=== PATIENT | male | born 1985 | race Hispanic/Latino ===

== ENCOUNTER 2019-12-17 11:00 | Emergency (ER) | payer SELFPAY | END 2019-12-17 12:50 | disposition left against medical advice (07) | LOC: ED 11:00 | DX: M25.549 Pain in joints of unspecified hand (principal); Z53.21 Procedure and treatment not carried out due to patient leaving prior to being seen by health care provider ==

== ENCOUNTER 2019-12-17 21:37 | Emergency (ER) | payer SELFPAY ==
[2019-12-17] MEDS ORDERED: SODIUM CHLORIDE 0.9% 1000 ML 1,000 ML IV ONE (21:53)
[2019-12-17] MEDS ORDERED: levETIRAcetam 1000 MG/NS 0.75% 1,000 MG/100 ML BAG IV ONE (21:53)
--- NOTE | 2019-12-17 21:56 | Emergency Department Report ---
ED Seizure HPI - General Stated Complaint: SEIZURES Time Seen by Provider: 12/17/19 21:52 Source: patient, EMS Mode of arrival: Stretcher Limitations: Physical Limitation - History of Present Illness Initial Comments: Patient is a 34-year-old male that presents to the emergency room for seizure and EtOH. Patient brought in by EMS. Patient states he has a history of seizure. Patient states he is not compliant with his medications. Patient states he was seen yesterday at another hospital and given a prescription for Keppra but never filled it. Patient states he was drinking today. Patient states he had 3 beers. Patient states his only complaint is a headache. Patien t states his headache is mild. Patient states his headache is better with rest and worse with movement. Patient states he is not sure if his seizure was witnessed. Patient does not know if he hit his head. Patient states he was at a gas station sitting outside. Report received from EMS. EMS states that the seizure was witnessed by another customer at the gas station. EMS states that the patient was sitting in his believe did not hit his head per the witnesses. Patient denies recent travel. Patient denies recent international travel. Patient denies exposure to the novel coronavirus. Patient denies sick contacts. Patient denies fever and chills. Patient denies cough. Patient denies diarrhea. Patient denies coming in contact with anybody with symptoms of the novel coronavirus. Complaint: seizure -: Sudden Description of Episode: loss of consciousness Witnessed:: No Trauma: No Seizure History: known seizure disorder, history of non-compliance Place: home - Related Data Allergies Allergy/AdvReac Type Severity Reaction Status Date / Time No Known Allergies Allergy Verified 12/17/19 23:34 ED Review of Systems ROS: Stated complaint: SEIZURES Other details as noted in HPI Constitutional: denies: chills, fever Eyes: denies: eye pain, eye discharge, vision change ENT: denies: ear pain, throat pain Respiratory: denies: cough, shortness of breath, wheezing Cardiovascular: denies: chest pain, palpitations Endocrine: no symptoms reported Gastrointestinal: denies: abdominal pain, nausea, diarrhea Genitourinary: denies: urgency, dysuria Musculoskeletal: denies: back pain, joint swelling, arthralgia Skin: denies: rash, lesions Neurological: as per HPI, headache. denies: weakness, paresthesias Psychiatric: denies: anxiety, depression Hematological/Lymphatic: denies: easy bleeding, easy bruising ED Past Medical Hx - Past Medical History Previous Medical History?: Yes Hx Seizures: Yes - Surgical History Past Surgical History?: No - Family History Family history: no significant - Social History Smoking Status: Current Every Day Smoker Substance Use Type: Alcohol ED Physical Exam - General Limitations: No Limitations General appearance: alert, in no apparent distress - Head Head exam: Present: atraumatic, normocephalic - Eye Eye exam: Present: normal appearance, PERRL Pupils: Present: normal accommodation - ENT ENT exam: Present: mucous membranes dry - Neck Neck exam: Present: normal inspection - Respiratory Respiratory exam: Present: normal lung sounds bilaterally. Absent: respiratory distress - Cardiovascular Cardiovascular Exam: Present: regular rate, normal rhythm. Absent: systolic murmur, diastolic murmur, rubs, gallop - GI/Abdominal GI/Abdominal exam: Present: soft, normal bowel sounds. Absent: distended, tenderness, guarding - Rectal Rectal exam: Present: deferred - Extremities Exam Extremities exam: Present: normal inspection - Back Exam Back exam: Present: normal inspection - Neurological Exam Neurological exam: Present: alert, oriented X3 - Psychiatric Psychiatric exam: Present: normal affect, normal mood - Skin Skin exam: Present: warm, dry, intact, normal color. Absent: rash ED Course Vital Signs 12/17/19 12/18/19 22:20 06:20 Temperature 98.5 F Pulse Rate 120 H 84 Respiratory 16 16 Rate Blood Pressure 140/92 96/51 [Left] O2 Sat by Pulse 98 96 Oximetry - Reevaluation(s) Reevaluation #1: Patient initially refused blood work. Patient has agreed to have blood work and IV started. Patient resting in room. 12/17/19 23:35 Reevaluation #2: Patient however repeat alcohol. No seizure activity noted. Patient is answering questions better. 12/18/19 02:01 Reevaluation #3: Patient signed out to oncoming physician, Dr. Merida. Patient will remain in the ER until the patient is clinically sober. 12/18/19 06:30 ED Medical Decision Making - Lab Data Result diagrams: 12/17/19 23:29 12/17/19 23:29 - Radiology Data Radiology results: report reviewed CT HEAD WITHOUT CONTRAST INDICATION / CLINICAL INFORMATION: Seizure. TECHNIQUE: All CT scans at this location are performed using CT dose reduction for ALARA by means of automated exposure control. COMPARISON: None available. FINDINGS: HEMORRHAGE: None. EXTRA-AXIAL SPACES: Normal in size and morphology for the patient's age. VENTRICULAR SYSTEM: Normal in size and morphology for the patient's age. CEREBRAL PARENCHYMA: No significant abnormality. No acute territorial infarct. MIDLINE SHIFT OR HERNIATION: None. CEREBELLUM / BRAINSTEM: No significant abnormality. ORBITS: Normal as visualized. SOFT TISSUES of HEAD: No significant abnormality. CALVARIUM: No significant abnormality. PARANASAL SINUSES / MASTOID AIR CELLS: Normal as visualized. ADDITIONAL FINDINGS: None. IMPRESSION: 1. No acute intracranial abnormality. - Medical Decision Making Patient is a 34-year-old male who presents emergency with seizure and alcohol intoxication. Patient had labs which were essentially unremarkable. Patient found to have an elevated blood alcohol. Patient monitored for multiple hours. Patient remained in the ER until he was legally sober and and the patient was discharged home. - Differential Diagnosis Seizure, alcohol abuse, head injury. Critical care attestation.: If time is entered above; I have spent that time in minutes in the direct care of this critically ill patient, excluding procedure time. ED Disposition Clinical Impression: Seizure Acute alcohol intoxication Qualifiers: Complication of substance-induced condition: with unspecified complication Qualified Code(s): F10.929 - Alcohol use, unspecified with intoxication, unspecified Disposition: DC-01 TO HOME OR SELFCARE Is pt being admited?: No Does the pt Need Aspirin: No Condition: Stable Instructions: Abuse of Alcohol (ED), At-Risk Alcohol Use (ED), Epilepsy (ED) Additional Instructions: Patient to follow-up with primary care in 2 to 3 days. Patient to follow-up with neurologist in 2 to 3 days. Patient to decrease alcohol intake. Patient to rest. Patient to increase water. Patient to avoid strenuous exercise or heavy lifting until cleared by neurologist. Patient to avoid driving. Patient to take Tylenol or ibuprofen as needed for pain. Patient to start Keppra. Patient to take meds as directed. Patient to return to the ER if condition worsens, changes or new symptoms arise. Referrals: PRIMARY CARE,MD [Primary Care Provider] - 2-3 Days MUNIR CRUZ MD [Staff Physician] - 2-3 Days
--- NOTE | 2019-12-17 22:45 | Cat Scan Report ---
CT HEAD WITHOUT CONTRAST INDICATION / CLINICAL INFORMATION: Seizure. TECHNIQUE: All CT scans at this location are performed using CT dose reduction for ALARA by means of automated e xposure control. COMPARISON: None available. FINDINGS: HEMORRHAGE: None. EXTRA-AXIAL SPACES: Normal in size and morphology for the patient's age. VENTRICULAR SYSTEM: Normal in size and morphology for the patient's age. CEREBRAL PARENCHYMA: No significant abnormality. No acute territorial infarct. MIDLINE SHIFT OR HERNIATION: None. CEREBELLUM / BRAINSTEM: No significant abnormality. ORBITS: Normal as visualized. SOFT TISSUES of HEAD: No significant abnormality. CALVARIUM: No significant abnormality. PARANASAL SINUSES / MASTOID AIR CELLS: Normal as visualized. ADDITIONAL FINDINGS: None. IMPRESSION: 1. No acute intracranial abnormality. Signer Name: Irvin William MD Signed: 12/17/2019 10:40 PM Workstation Name: [id number]
[2019-12-17 23:54] LABS: Basophils % (Auto) 0.5 % (0.0-1.8); Eosinophils % (Auto) 0.4 % (0.0-4.3); Hematocrit 35.4 % (35.5-45.6); Hemoglobin 11.9 gm/dl (11.8-15.2); Lymphocytes % (Auto) 13.2 % (13.4-35.0); Mean Corpuscular HGB Conc 34 % (32-34); Mean Corpuscular Volume 99 fl (84-94); Monocytes # (Auto) 0.7 K/mm3 (0.0-0.8); Monocytes % (Auto) 8.8 % (0.0-7.3); Platelet Count 232 K/mm3 (140-440); Red Blood Count 3.59 M/mm3 (3.65-5.03); Red Cell Distribution Width 17.3 % (13.2-15.2)
[2019-12-17 23:58] LABS: Bilirubin,Urine NEG (Negative); Blood,Urine NEG (Negative); Color,Urine Straw (Yellow); Protein,Urine <15 mg/dL mg/dL (Negative); Urobilinogen,Urine < 2.0 mg/dL (<2.0); WBC,Urine < 1.0 /HPF (0.0-6.0)
[2019-12-18 00:05] LABS: Amphetamine Screen,Urine PRESUMPTIVE NEGATIVE; Benzodiazepines Screen,Urine PRESUMPTIVE POSITIVE; Cannabinoid Screen,Urine PRESUMPTIVE NEGATIVE; Cocaine Screen,Urine PRESUMPTIVE NEGATIVE; Methadone Screen,Urine PRESUMPTIVE NEGATIVE; Opiate Screen,Urine PRESUMPTIVE NEGATIVE
[2019-12-18 00:08] LABS: Alanine Aminotransferase 27 units/L (7-56); Albumin 3.7 g/dL (3.9-5); Blood Urea Nitrogen 4 mg/dL (9-20); Calcium 8.2 mg/dL (8.4-10.2); Hemolysis Index 6
[2019-12-18 00:09] LABS: BUN/Creatinine Ratio 8
[2019-12-18] MEDS ORDERED: THIAMINE 100 MG, FOLIC ACID 1 MG, MULTIPLE VITAMIN INJ, ADULT 10 ML in SODIUM CHLORIDE ... IV ONE (00:17)
[2019-12-18 13:52] VITALS: BP 122/79
== END 2019-12-18 13:51 | disposition home or self-care (01) ==
LOC: ED 21:37
DX: G40.909 Epilepsy, unspecified, not intractable, without status epilepticus (principal); F10.929 Alcohol use, unspecified with intoxication, unspecified; F17.200 Nicotine dependence, unspecified, uncomplicated
CPT/HCPCS: 36415; 70450; 80053; 80307; 81001; 85025; 96365; 96366; 96375; 99285; J1953; J3411; J7030; 80320; G0480

== ENCOUNTER 2019-12-18 20:46 | Emergency (ER) | payer SELFPAY ==
[2019-12-18 21:35] VITALS: BP 122/82
== END 2019-12-19 00:12 | disposition left against medical advice (07) ==
LOC: ED 20:46
DX: G40.909 Epilepsy, unspecified, not intractable, without status epilepticus (principal); Z53.21 Procedure and treatment not carried out due to patient leaving prior to being seen by health care provider

== ENCOUNTER 2019-12-19 01:47 | Emergency (ER) | payer SELFPAY ==
[2019-12-19 07:07] LABS: Basophils % (Auto) 0.7 % (0.0-1.8); Eosinophils % (Auto) 0.6 % (0.0-4.3); Hematocrit 39.2 % (35.5-45.6); Hemoglobin 13.4 gm/dl (11.8-15.2); Lymphocytes # (Auto) 1.5 K/mm3 (1.2-5.4); Lymphocytes % (Auto) 21.6 % (13.4-35.0); Mean Corpuscular HGB Conc 34 % (32-34); Mean Corpuscular Volume 98 fl (84-94); Monocytes # (Auto) 0.4 K/mm3 (0.0-0.8); Monocytes % (Auto) 6.3 % (0.0-7.3); Platelet Count 186 K/mm3 (140-440); Red Blood Count 3.99 M/mm3 (3.65-5.03); Red Cell Distribution Width 16.7 % (13.2-15.2)
[2019-12-19] MEDS ORDERED: LORazepam 2 MG/ML VIAL IV PRN ×2 (07:29)
[2019-12-19 07:30] LABS: Alanine Aminotransferase 23 units/L (7-56); Albumin 3.6 g/dL (3.9-5); Blood Urea Nitrogen 5 mg/dL (9-20); Calcium 8.5 mg/dL (8.4-10.2); Hemolysis Index 46
[2019-12-19] MEDS ORDERED: levETIRAcetam 1000 MG/NS 0.75% 1,000 MG/100 ML BAG IV ONE (07:30)
[2019-12-19 07:31] LABS: BUN/Creatinine Ratio 10
--- NOTE | 2019-12-19 07:44 | Emergency Department Report ---
HPI - General Chief Complaint: Seizure Time Seen by Provider: 12/19/19 07:23 - HPI HPI: This is a 34-year-old male who presents to the emergency department with complaint of a seizure prior to arrival. This is the third day in a row that the patient has come here and he was here yesterday with a complaint of seizure and alcohol intoxication. The patient does admit to drinking alcohol daily and thinks that he may be going into withdrawal. However the patient does have a history of epilepsy for which she is supposed to be on Keppra but has been noncompliant secondary to financial issues. The patient says that he is homeless. Currently the patient is awake, alert, and just complains of feeling jittery. Apparently the patient was at another hospital a few days ago for seizure-like activity and was discharged with a prescription for Keppra, but the patient did not fill it as he did not have the money to do so. He denies any headache, fever, vision change, slurred speech, vomiting, chest pain, shortness of breath.. ED Past Medical Hx - Past Medical History Previous Medical History?: Yes Hx Seizures: Yes - Surgical History Past Surgical History?: No - Social History Smoking Status: Current Every Day Smoker Substance Use Type: Alcohol - Medications Home Medications: Home Medications Medication Instructions Recorded Confirmed Last Taken Type chlordiazePOXIDE [Librium] 25 mg PO Q8H PRN #8 capsule 12/19/19 Unknown Rx ED Review of Systems ROS: Stated complaint: SEIZURE Other details as noted in HPI Comment: All other systems reviewed and negative Constitutional: denies: chills, fever Eyes: denies: eye pain, vision change ENT: denies: ear pain, throat pain Respiratory: denies: cough, shortness of breath Cardiovascular: denies: chest pain, palpitations Gastrointestinal: nausea. denies: abdominal pain, vomiting Genitourinary: denies: dysuria, discharge Musculoskeletal: denies: back pain, arthralgia Skin: denies: rash, lesions Neurological: other (Seizure). denies: numbness, paresthesias Physical Exam - Physical Exam Vital Signs: Vital Signs 12/19/19 03:00 Temperature 98.1 F Pulse Rate 112 H Respiratory 18 Rate Blood Pressure 122/82 [Left] O2 Sat by Pulse 99 Oximetry Physical Exam: GENERAL: The patient is well-developed well-nourished. HENT: Normocephalic. Atraumatic. Patient has moist mucous membranes. EYES: Extraocular motions are intact. No nystagmus. NECK: Supple. Trachea is midline. CHEST/LUNGS: Clear to auscultation. There is no respiratory distress noted. HEART/CARDIOVASCULAR: Regular. There is mild tachycardia. ABDOMEN: Abdomen is soft, nontender. Patient has normal bowel sounds. There is no abdominal distention. SKIN: Skin is warm and dry. NEURO: The patient is awake, alert, and oriented. The patient is cooperative. The patient has no focal neurologic deficits. Normal speech. Cranial nerves II through XII grossly intact. No facial asymmetry. MUSCULOSKELETAL: There is no tenderness or deformity. There is no limitation range of motion. ED Course Vital Signs 12/19/19 03:00 Temperature 98.1 F Pulse Rate 112 H Respiratory 18 Rate Blood Pressure 122/82 [Left] O2 Sat by Pulse 99 Oximetry - Reevaluation(s) Reevaluation #1: 12/20/19 06:35 Lab Results 12/19/19 12/19/19 12/19/19 Range/Units 06:49 06:49 07:50 WBC 6.7 (4.5-11.0) K/mm3 RBC 3.99 (3.65-5.03) M/mm3 Hgb 13.4 (11.8-15.2) gm/dl Hct 39.2 (35.5-45.6) % MCV 98 H (84-94) fl MCH 34 H (28-32) pg MCHC 34 (32-34) % RDW 16.7 H (13.2-15.2) % Plt Count 186 (140-440) K/mm3 Lymph % (Auto) 21.6 (13.4-35.0) % [place] % (Auto) 6.3 (0.0-7.3) % Eos % (Auto) 0.6 (0.0-4.3) % Baso % (Auto) 0.7 (0.0-1.8) % Lymph # (Auto) 1.5 (1.2-5.4) K/mm3 [place] # (Auto) 0.4 (0.0-0.8) K/mm3 Eos # (Auto) 0.0 (0.0-0.4) K/mm3 Baso # (Auto) 0.0 (0.0-0.1) K/mm3 Seg Neutrophils % 70.8 H (40.0-70.0) % Seg Neutrophils # 4.8 (1.8-7.7) K/mm3 Sodium 141 (137-145) mmol/L Potassium 3.8 (3.6-5.0) mmol/L Chloride 101.5 (98-107) mmol/L Carbon Dioxide 25 (22-30) mmol/L Anion Gap 18 mmol/L BUN 5 L (9-20) mg/dL Creatinine 0.5 L (0.8-1.3) mg/dL Estimated GFR > 60 ml/min BUN/Creatinine Ratio 10 % Glucose 83 (75-100) mg/dL Calcium 8.5 (8.4-10.2) mg/dL Magnesium (1.7-2.3) mg/dL Total Bilirubin 0.40 (0.1-1.2) mg/dL AST 48 H (5-40) units/L ALT 23 (7-56) units/L Alkaline Phosphatase 234 H (35-129) units/L Total Creatine Kinase (55-170) units/L Total Protein 7.3 (6.3-8.2) g/dL Albumin 3.6 L (3.9-5) g/dL Albumin/Globulin Ratio 1.0 % Plasma/Serum Alcohol 0.23 H (0-0.07) % 10/30/20 Range/Units 07:50 WBC (4.5-11.0) K/mm3 RBC (3.65-5.03) M/mm3 Hgb (11.8-15.2) gm/dl Hct (35.5-45.6) % MCV (84-94) fl MCH (28-32) pg MCHC (32-34) % RDW (13.2-15.2) % Plt Count (140-440) K/mm3 Lymph % (Auto) (13.4-35.0) % [place] % (Auto) (0.0-7.3) % Eos % (Auto) (0.0-4.3) % Baso % (Auto) (0.0-1.8) % Lymph # (Auto) (1.2-5.4) K/mm3 [place] # (Auto) (0.0-0.8) K/mm3 Eos # (Auto) (0.0-0.4) K/mm3 Baso # (Auto) (0.0-0.1) K/mm3 Seg Neutrophils % (40.0-70.0) % Seg Neutrophils # (1.8-7.7) K/mm3 Sodium (137-145) mmol/L Potassium (3.6-5.0) mmol/L Chloride (98-107) mmol/L Carbon Dioxide (22-30) mmol/L Anion Gap mmol/L BUN (9-20) mg/dL Creatinine (0.8-1.3) mg/dL Estimated GFR ml/min BUN/Creatinine Ratio % Glucose (75-100) mg/dL Calcium (8.4-10.2) mg/dL Magnesium 1.70 (1.7-2.3) mg/dL Total Bilirubin (0.1-1.2) mg/dL AST (5-40) units/L ALT (7-56) units/L Alkaline Phosphatase (35-129) units/L Total Creatine Kinase 222 H (55-170) units/L Total Protein (6.3-8.2) g/dL Albumin (3.9-5) g/dL Albumin/Globulin Ratio % Plasma/Serum Alcohol (0-0.07) % ED Medical Decision Making - Lab Data Result diagrams: 12/19/19 06:49 12/19/19 06:49 - Medical Decision Making This patient presents to the emergency department with a complaint of a seizure prior to arrival. The patient says that he is having alcohol withdrawal symptoms but his initial alcohol level is 0.23. He was low on the CIWA protocol and did receive 1 dose of Ativan. The rest of his labs were mostly unremarkable except for a slight elevation in the AST, secondary to the alcohol use. Patient was reevaluated multiple times over multiple hours until his blood alcohol level was close to the legal limit of 0.08. He has been awake, alert, oriented. There are no focal, motor or sensory deficits and his cranial nerves are intact. The patient does not have any signs of acute psychosis, hallucinations, delirium tremens, and there has been no further seizure-like activity. On top of the alcohol use, and potential withdrawal, the patient has a history of epilepsy and he has been noncompliant with his Keppra. He has a previous prescription for the Keppra but has not gotten it filled secondary to financial issues, as the patient is homeless. He was loaded with a gram of Keppra here. The patient expresses the desire to stop drinking and seek detox/rehabilitation. He has been given a small prescription for Librium to assist with cessation of alcohol and any potential alcohol withdrawal. However he will go to the closest emergency department with any further seizure-like activity, worsening of symptoms, or with any acute distress. Critical Care Time: No Critical care attestation.: If time is entered above; I have spent that time in minutes in the direct care of this critically ill patient, excluding procedure time. ED Disposition Clinical Impression: Seizure, Noncompliance with medication regimen Acute alcohol intoxication Qualifiers: Complication of substance-induced condition: uncomplicated Qualified Code(s): F10.920 - Alcohol use, unspecified with intoxication, uncomplicated Disposition: DC-01 TO HOME OR SELFCARE Is pt being admited?: No Condition: Stable Instructions: Alcohol Intoxication (ED), Abuse of Alcohol (ED), Recurrent Seizures Adult (ED) Additional Instructions: Please follow-up with a primary care physician in the next few days. I am giving you a prescription for Librium to assist with your alcohol withdrawals. Please do not drink alcohol while taking this medication. I will give you multiple outpatient referrals for substance abuse facilities. Return to the emergency department with any worsening of your symptoms, new or concerning symptoms not addressed during this current emergency department visit, or with any acute distress. Prescriptions: chlordiazePOXIDE [Librium] 25 mg PO Q8H PRN #8 capsule PRN Reason: Alcohol Withdrawal Referrals: [facility] [Provider Group] - 2-3 Days Time of Disposition: 14:42
[2019-12-19] MEDS ORDERED: THIAMINE 100 MG, FOLIC ACID 1 MG, MULTIPLE VITAMIN INJ, ADULT 10 ML in SODIUM CHLORIDE ... IV ONE (09:00)
[2019-12-19 15:01] VITALS: BP 100/60
== END 2019-12-19 15:20 | disposition home or self-care (01) ==
LOC: ED 01:47
DX: R56.9 Unspecified convulsions (principal); F10.920 Alcohol use, unspecified with intoxication, uncomplicated; F17.200 Nicotine dependence, unspecified, uncomplicated
CPT/HCPCS: 36415; 80053; 82550; 83735; 85025; 96365; 96367; 96375; 99284; J1953; J2060; J3411; J7030; 80320; G0480

== ENCOUNTER 2019-12-19 20:34 | Emergency (ER) | payer SELFPAY ==
[2019-12-19 20:59] VITALS: BP 113/73
--- NOTE | 2019-12-19 22:11 | Emergency Department Report ---
ED Seizure HPI - General Chief Complaint: Seizure Stated Complaint: SEIZURE Time Seen by Provider: 12/19/19 21:40 Source: patient, EMS Mode of arrival: Stretcher Limitations: No Limitations - History of Present Illness Initial Comments: Patient is a 34-year-old male that presents emergency room with complaints of seizure. Patient states he is homeless and needs a place to stay as well. Patient states he can afford to buy his Keppra. He states he has a prescription from another hospital already. Patient has been here multiple times in the last 3 days. Patient denies chest pain shortness of breath. Patient states he was sitting down when he had a seizure. Patient was brought in by EMS. Report received from EMS. MD Complaint: seizure -: Sudden Description of Episode: loss of consciousness, tonic-clonic movement -: second(s) Witnessed:: No Trauma: No Seizure History: known seizure disorder, history of non-compliance Place: street/outdoors Possible Precipitating Event: none Associated Symptoms: denies other symptoms - Related Data Previous Rx's Medication Instructions Recorded Last Taken Type chlordiazePOXIDE [Librium] 25 mg PO Q8H PRN #8 capsule 12/19/19 Unknown Rx Allergies Allergy/AdvReac Type Severity Reaction Status Date / Time No Known Allergies Allergy Verified 12/17/19 23:34 ED Review of Systems ROS: Stated complaint: SEIZURE Other details as noted in HPI Constitutional: denies: chills, fever Eyes: denies: eye pain, eye discharge, vision change ENT: denies: ear pain, throat pain Respiratory: denies: cough, shortness of breath, wheezing Cardiovascular: denies: chest pain, palpitations Endocrine: no symptoms reported Gastrointestinal: denies: abdominal pain, nausea, diarrhea Genitourinary: denies: urgency, dysuria Musculoskeletal: denies: back pain, joint swelling, arthralgia Skin: denies: rash, lesions Neurological: denies: headache, weakness, paresthesias Psychiatric: denies: anxiety, depression Hematological/Lymphatic: denies: easy bleeding, easy bruising ED Past Medical Hx - Past Medical History Previous Medical History?: Yes Hx Seizures: Yes - Surgical History Past Surgical History?: No - Social History Smoking Status: Current Every Day Smoker Substance Use Type: None - Medications Home Medications: Home Medications Medication Instructions Recorded Confirmed Last Taken Type chlordiazePOXIDE [Librium] 25 mg PO Q8H PRN #8 capsule 12/19/19 Unknown Rx ED Physical Exam - General Limitations: No Limitations General appearance: alert, in no apparent distress - Head Head exam: Present: atraumatic, normocephalic - Eye Eye exam: Present: normal appearance - ENT ENT exam: Present: mucous membranes moist - Neck Neck exam: Present: normal inspection - Respiratory Respiratory exam: Present: normal lung sounds bilaterally. Absent: respiratory distress - Cardiovascular Cardiovascular Exam: Present: regular rate, normal rhythm. Absent: systolic murmur, diastolic murmur, rubs, gallop - GI/Abdominal GI/Abdominal exam: Present: soft, normal bowel sounds - Rectal Rectal exam: Present: deferred - Extremities Exam Extremities exam: Present: normal inspection - Back Exam Back exam: Present: normal inspection - Neurological Exam Neurological exam: Present: alert, oriented X3 - Psychiatric Psychiatric exam: Present: normal affect, normal mood - Skin Skin exam: Present: warm, dry, intact, normal color. Absent: rash ED Course Vital Signs 12/19/19 20:46 Temperature 97.5 F L Pulse Rate 95 H Respiratory 18 Rate Blood Pressure 113/73 O2 Sat by Pulse 100 Oximetry - Reevaluation(s) Reevaluation #1: During initial evaluation after the exam is done the patient had a grand mal seizure. Patient's seizure terminated on its own. Patient was given IV Keppra. 12/19/19 22:10 Reevaluation #2: Patient is becoming more arousable and answering some questions. Patient will be given IV Keppra. Patient will have labs done. 12/19/19 22:37 Reevaluation #3: Patient is awake alert and oriented x3. Patient will be given p.o. Keppra. IV Keppra discontinued. We will continue to monitor the patient 12/20/19 00:22 Reevaluation #4: Patient is still answering questions appropriately. Patient is alert and oriented x4. Patient had oral Keppra. No further seizure activity noted in the ER. I discussed all results and clinical findings with patient. I discussed plan of care with patient. Patient agrees with plan of care. Patient is stable for discharge. Patient will be discharged home. Patient given discharge instructions. Patient voiced understanding of discharge instructions. 12/20/19 01:05 ED Medical Decision Making - Lab Data Result diagrams: 12/19/19 22:40 12/19/19 22:40 - Medical Decision Making Patient is a 34-year-old male that presents emergency room with complaints of seizure activity. Patient has a known history of. Patient also has history of noncompliance. Patient has a prescription for Keppra but still has not picked it up. Patient has been here multiple times this week. Patient is alert and oriented x4. Patient has not had any further seizure activity in the ER. Patient was given oral Keppra. Patient stable for discharge. Patient discharged discharged home. Patient given discharge instructions. - Differential Diagnosis Seizure, noncompliance. Critical care attestation.: If time is entered above; I have spent that time in minutes in the direct care of this critically ill patient, excluding procedure time. ED Disposition Clinical Impression: Seizure, Noncompliance with medication regimen Disposition: TO HOME OR SELFCARE Is pt being admited?: No Does the pt Need Aspirin: No Condition: Stable Instructions: Epilepsy (ED), Recurrent Seizures Adult (ED) Additional Instructions: Patient to follow-up with primary care in 2 to 3 days. Patient to follow-up with neurologist in 2 to 3 days. Patient to reduce alcohol intake. Patient to rest. Patient to increase water. Patient to avoid strenuous exercise or heavy lifting until cleared by neurologist.. Patient to avoid driving. patient to take Tylenol or ibuprofen as needed for pain. Patient to fill Keppra pres cription. Patient to return to the ER if condition worsens, changes or new symptoms arise. Referrals: PRIMARY CARE, [Primary Care Provider] - 2-3 Days Time of Disposition: 01:09
[2019-12-19] MEDS ORDERED: levETIRAcetam 1000 MG/NS 0.75% 1,000 MG/100 ML BAG IV ONE (22:36)
[2019-12-19] MEDS ORDERED: SODIUM CHLORIDE 0.9% 1000 ML 1,000 ML IV ONE (22:36)
[2019-12-19 23:28] LABS: Basophils % (Auto) 0.4 % (0.0-1.8); Eosinophils % (Auto) 0.3 % (0.0-4.3); Hematocrit 38.4 % (35.5-45.6); Hemoglobin 13.2 gm/dl (11.8-15.2); Lymphocytes # (Auto) 1.2 K/mm3 (1.2-5.4); Lymphocytes % (Auto) 15.1 % (13.4-35.0); Mean Corpuscular HGB Conc 35 % (32-34); Mean Corpuscular Volume 98 fl (84-94); Monocytes # (Auto) 0.7 K/mm3 (0.0-0.8); Monocytes % (Auto) 8.9 % (0.0-7.3); Platelet Count 201 K/mm3 (140-440); Red Blood Count 3.91 M/mm3 (3.65-5.03); Red Cell Distribution Width 16.7 % (13.2-15.2)
[2019-12-19 23:43] LABS: BUN/Creatinine Ratio 6; Blood Urea Nitrogen 3 mg/dL (9-20); Calcium 8.4 mg/dL (8.4-10.2); Hemolysis Index 4
[2019-12-20] MEDS ORDERED: levETIRAcetam 500 MG TAB PO ONE (00:19)
== END 2019-12-20 01:26 | disposition home or self-care (01) ==
LOC: ED 20:34
DX: G40.909 Epilepsy, unspecified, not intractable, without status epilepticus (principal); Z91.14 Patient's other noncompliance with medication regimen; F17.200 Nicotine dependence, unspecified, uncomplicated; Z79.899 Other long term (current) drug therapy
CPT/HCPCS: 36415; 80048; 85025; 99283

== ENCOUNTER 2019-12-20 19:54 | Emergency (ER) | payer SELFPAY ==
[2019-12-21 00:10] VITALS: BP 130/78
== END 2019-12-21 00:09 | disposition left against medical advice (07) ==
LOC: ED 19:54
DX: R10.9 Unspecified abdominal pain (principal); Z53.21 Procedure and treatment not carried out due to patient leaving prior to being seen by health care provider

== ENCOUNTER 2019-12-22 07:36 | Emergency (ER) | payer SELFPAY ==
[2019-12-22 08:13] VITALS: BP 126/95
[2019-12-22] MEDS ORDERED: levETIRAcetam 500 MG TAB PO ONE (08:20)
--- NOTE | 2019-12-22 08:26 | Emergency Department Report ---
ED General Adult HPI - General Chief complaint: Seizure Stated complaint: SEIZURE ACTIVITY Time Seen by Provider: 12/22/19 08:15 Source: patient, EMS Mode of arrival: Stretcher Limitations: No Limitations - History of Present Illness Initial comments: Patient is a 34-year-old male past medical history of seizures and alcoholism who presents with seizure. Patient was found by EMS behind a store patient is currently alert and oriented he states that he has been out of his Keppra. He states he drinks about 10 beers a day and he last had a drink earlier today. Patient denies being any pain he states that he has just been out of Keppra and sometimes he has seizures. Patient denies any nausea or any vomiting any fevers any chills any shortness of breath. Severity scale (0 -10): 7 - Related Data Previous Rx's Medication Instructions Recorded Last Taken Type chlordiazePOXIDE [Librium] 25 mg PO Q8H PRN #8 capsule 12/19/19 Unknown Rx levETIRAcetam [Keppra TAB] 500 mg PO BID #60 tablet 12/22/19 Unknown Rx Allergies Allergy/AdvReac Type Severity Reaction Status Date / Time No Known Allergies Allergy Verified 12/17/19 23:34 ED Review of Systems ROS: Stated complaint: SEIZURE ACTIVITY Other details as noted in HPI Constitutional: denies: chills, fever Eyes: denies: eye pain, eye discharge, vision change ENT: denies: ear pain, throat pain Respiratory: denies: cough, shortness of breath, wheezing Cardiovascular: denies: chest pain, palpitations Endocrine: no symptoms reported Gastrointestinal: denies: abdominal pain, nausea, diarrhea Genitourinary: denies: urgency, dysuria Musculoskeletal: denies: back pain, joint swelling, arthralgia Skin: denies: rash, lesions Neurological: as per HPI, other (seizure ). denies: headache, weakness, paresthesias Psychiatric: denies: anxiety, depression Hematological/Lymphatic: denies: easy bleeding, easy bruising ED Past Medical Hx - Past Medical History Previous Medical History?: Yes Hx Seizures: Yes - Surgical History Past Surgical History?: No - Social History Smoking Status: Never Smoker Substance Use Type: Alcohol - Medications Home Medications: Home Medications Medication Instructions Recorded Confirmed Last Taken Type chlordiazePOXIDE [Librium] 25 mg PO Q8H PRN #8 capsule 12/19/19 Unknown Rx levETIRAcetam [Keppra TAB] 500 mg PO BID #60 tablet 12/22/19 Unknown Rx ED Physical Exam - General Limitations: No Limitations General appearance: alert, in no apparent distress, other (can smell alcohol on breath) - Head Head exam: Present: atraumatic, normocephalic - Eye Eye exam: Present: normal appearance - ENT ENT exam: Present: mucous membranes moist - Neck Neck exam: Present: normal inspection - Respiratory Respiratory exam: Present: normal lung sounds bilaterally. Absent: respiratory distress - Cardiovascular Cardiovascular Exam: Present: regular rate, normal rhythm. Absent: systolic murmur, diastolic murmur, rubs, gallop - GI/Abdominal GI/Abdominal exam: Present: soft, normal bowel sounds - Rectal Rectal exam: Present: deferred - Extremities Exam Extremities exam: Present: normal inspection - Back Exam Back exam: Present: normal inspection - Neurological Exam Neurological exam: Present: alert, oriented X3 - Psychiatric Psychiatric exam: Present: normal affect, normal mood - Skin Skin exam: Present: warm, dry, intact, normal color. Absent: rash ED Course Vital Signs 12/22/19 08:08 Temperature 97.8 F Pulse Rate 77 Respiratory 14 Rate Blood Pressure 126/95 [Left] O2 Sat by Pulse 98 Oximetry ED Medical Decision Making - Medical Decision Making Cdx: Seizures 2/2 medication non compliance ddx: Electrolyte abnormality, anemia I will give patient oral keppra and will get cbc and bmp 08:33 Patient refused blood work patient will be discharged and will be given Keppra Critical care attestation.: If time is entered above; I have spent that time in minutes in the direct care of this critically ill patient, excluding procedure time. ED Disposition Clinical Impression: Noncompliance with medication regimen, Seizure Acute alcohol intoxication Qualifiers: Complication of substance-induced condition: uncomplicated Qualified Code(s): F10.920 - Alcohol use, unspecified with intoxication, uncomplicated Disposition: DC-01 TO HOME OR SELFCARE Is pt being admited?: No Does the pt Need Aspirin: No Condition: Stable Instructions: Epilepsy (ED), Alcohol Intoxication (ED) Prescriptions: levETIRAcetam [Keppra TAB] 500 mg PO BID #60 tablet Referrals: PRIMARY CARE,MD [Primary Care Provider] - 3-5 Days
== END 2019-12-22 09:20 | disposition home or self-care (01) ==
LOC: ED 07:36
DX: R56.9 Unspecified convulsions (principal); F10.920 Alcohol use, unspecified with intoxication, uncomplicated
CPT/HCPCS: 99283

== ENCOUNTER 2019-12-22 21:02 | Emergency (ER) | payer SELFPAY ==
[2019-12-23] MEDS ORDERED: SODIUM CHLORIDE 0.9% 1000 ML 1,000 ML IV ONE (00:23)
[2019-12-23] MEDS ORDERED: levETIRAcetam 1000 MG/NS 0.75% 1,000 MG/100 ML BAG IV ONE (00:23)
[2019-12-23 01:28] LABS: Basophils % (Auto) 0.4 % (0.0-1.8); Eosinophils % (Auto) 0.3 % (0.0-4.3); Hematocrit 40.3 % (35.5-45.6); Hemoglobin 13.6 gm/dl (11.8-15.2); Lymphocytes # (Auto) 1.2 K/mm3 (1.2-5.4); Lymphocytes % (Auto) 13.9 % (13.4-35.0); Mean Corpuscular HGB Conc 34 % (32-34); Mean Corpuscular Volume 99 fl (84-94); Monocytes # (Auto) 0.5 K/mm3 (0.0-0.8); Platelet Count 213 K/mm3 (140-440); Red Blood Count 4.06 M/mm3 (3.65-5.03); Red Cell Distribution Width 16.5 % (13.2-15.2)
[2019-12-23 01:46] LABS: Alanine Aminotransferase 26 units/L (7-56); Blood Urea Nitrogen 4 mg/dL (9-20); Calcium 8.8 mg/dL (8.4-10.2); Hemolysis Index 9
[2019-12-23 01:48] LABS: BUN/Creatinine Ratio 8
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
[2019-12-23] MEDS ORDERED: THIAMINE 100 MG, FOLIC ACID 1 MG, MULTIPLE VITAMIN INJ, ADULT 10 ML in SODIUM CHLORIDE ... IV ONE (07:30)
[2019-12-23 10:54] VITALS: BP 104/67
[2019-12-23] MEDS ORDERED: LORazepam 2 MG/ML VIAL ONE (11:41)
[2019-12-23] MEDS ORDERED: LORazepam 2 MG/ML VIAL IV ONE (11:44)
[2019-12-23 15:01] LABS: Bilirubin,Urine NEG (Negative); Blood,Urine MOD (Negative); Color,Urine Yellow (Yellow); Protein,Urine <15 mg/dL mg/dL (Negative); Urobilinogen,Urine < 2.0 mg/dL (<2.0)
[2019-12-23 15:04] LABS: Amphetamine Screen,Urine PRESUMPTIVE NEGATIVE; Benzodiazepines Screen,Urine PRESUMPTIVE POSITIVE; Cannabinoid Screen,Urine PRESUMPTIVE NEGATIVE; Cocaine Screen,Urine PRESUMPTIVE NEGATIVE; Methadone Screen,Urine PRESUMPTIVE NEGATIVE; Opiate Screen,Urine PRESUMPTIVE NEGATIVE
== END 2019-12-23 16:11 ==
LOC: ED 21:02
DX: F10.129 Alcohol abuse with intoxication, unspecified (principal); R56.9 Unspecified convulsions
CPT/HCPCS: 36415; 80053; 80307; 81001; 85025; 87086; 93005; 96365; 96366; 96375; 99284; J1953; J2060; J3411; J7030; 80320; G0480

== ENCOUNTER 2019-12-23 22:46 | Emergency (ER) | payer SELFPAY | END 2019-12-23 23:00 | disposition left against medical advice (07) | LOC: ED 22:46 | DX: R56.9 Unspecified convulsions (principal); Z53.21 Procedure and treatment not carried out due to patient leaving prior to being seen by health care provider ==

== ENCOUNTER 2019-12-25 01:10 | Emergency (ER) | payer SELFPAY | END 2019-12-25 01:20 | disposition left against medical advice (07) | LOC: ED 01:10 | DX: R56.9 Unspecified convulsions (principal); Z53.21 Procedure and treatment not carried out due to patient leaving prior to being seen by health care provider ==

== ENCOUNTER 2019-12-26 01:46 | Emergency (ER) | payer SELFPAY ==
[2019-12-26] MEDS ORDERED: levETIRAcetam 500 MG TAB PO ONE (06:42)
[2019-12-26 06:53] VITALS: BP 128/79
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
[2019-12-26 07:27] LABS: Basophils % (Auto) 0.7 % (0.0-1.8); Eosinophils % (Auto) 0.5 % (0.0-4.3); Hematocrit 40.2 % (35.5-45.6); Hemoglobin 13.4 gm/dl (11.8-15.2); Lymphocytes % (Auto) 19.2 % (13.4-35.0); Mean Corpuscular HGB Conc 33 % (32-34); Mean Corpuscular Volume 97 fl (84-94); Monocytes # (Auto) 0.5 K/mm3 (0.0-0.8); Monocytes % (Auto) 10.1 % (0.0-7.3); Platelet Count 176 K/mm3 (140-440); Red Blood Count 4.12 M/mm3 (3.65-5.03); Red Cell Distribution Width 16.4 % (13.2-15.2)
[2019-12-26 07:42] LABS: Hemolysis Index 399
[2019-12-26 07:47] LABS: BUN/Creatinine Ratio TNR; Blood Urea Nitrogen TNR mg/dL (9-20)
[2019-12-26 07:48] LABS: Alanine Aminotransferase TNR units/L (7-56); Albumin TNR g/dL (3.9-5); Calcium TNR mg/dL (8.4-10.2)
[2019-12-26 08:53] LABS: Alanine Aminotransferase 25 units/L (7-56); Albumin 3.6 g/dL (3.9-5); BUN/Creatinine Ratio 10; Blood Urea Nitrogen 5 mg/dL (9-20); Calcium 8.3 mg/dL (8.4-10.2); Hemolysis Index 2
[2019-12-26] MEDS ORDERED: POTASSIUM CHLORIDE ER 20 MEQ TAB PO ONE (08:58)
== END 2019-12-26 09:20 | disposition home or self-care (01) ==
LOC: ED 01:46
DX: R56.9 Unspecified convulsions (principal); E87.6 Hypokalemia; F10.129 Alcohol abuse with intoxication, unspecified; F17.200 Nicotine dependence, unspecified, uncomplicated
CPT/HCPCS: 36415; 80053; 80320; 83735; 85025; 93005; G0480